=== PATIENT | male | born 1955 | race Caucasian/White ===

== ENCOUNTER → 2017-07-22 | Outpatient (CLI) | END | disposition home or self-care (01) ==

== ENCOUNTER → 2017-08-24 | Outpatient (CLI) | END | disposition home or self-care (01) ==

== ENCOUNTER → 2018-04-22 | Outpatient (CLI) | payer OTHER ==
[~2018-04-22] MED LIST: ALBU18HF INHALATION; ALLO100T PO; APIX2.5T PO; ASPI81TA16 PO; CLON-379 PO; DOCU250C58 PO; DOXA4TAB3 PO; FLUT16SP17 NASAL; FLUT50DI IH; FOLI-49 PO; GLIP5TAB13 PO; HC30CR25 TOP; LABE300T2 PO; LEVO50TA7 PO; LIDOCAINE 1% (MPF) 5 ML VIAL ONE; MECL25TA2 PO; NIFE60TA18 PO; OMEP20CA9 PO; SIMV20TA PO; TACR1CAP PO; TELM80TA7 PO
--- NOTE | 2018-04-22 10:52 | NUR ---
ULTRASOUND GUIDED FINE NEEDLE ASPIRATION OF BILATERAL THYROID PERFORMED BY DR GORDON,PHATOLOGYST WAS PRESENT DURING PROCEDURE
== END | disposition home or self-care (01) ==
LOC: U/S 08:55
PROVIDERS: ATTEND Internal Medicine Endocrinology, Diabetes & Metabolism
DX: E04.2 Nontoxic multinodular goiter (principal); E21.3 Hyperparathyroidism, unspecified; E11.8 Type 2 diabetes mellitus with unspecified complications; E03.9 Hypothyroidism, unspecified; Z94.0 Kidney transplant status
CPT/HCPCS: 60100; 88104; 88307; 88313; Z7610